=== PATIENT | female | born 1980 | race Caucasian/White ===

== ENCOUNTER 2019-08-27 06:07 | Day surgery (SDC) | payer OTHER ==
[~2019-08-27] VITALS: Ht 165.1 cm; Wt 94.8 kg
[2019-08-27] MEDS ORDERED: MIDAZOLAM 2 MG/2 ML VIAL ONE (08:08)
[2019-08-27] MEDS ORDERED: fentaNYL 0.05 MG/ML VIAL ONE (08:08)
[2019-08-27] MEDS ORDERED: MEPERIDINE 50 MG/ML SYR ONE (08:09)
[2019-08-27] MEDS ORDERED: ROCURONIUM 50 MG/5 ML VIAL IV ONE (08:10)
[2019-08-27] MEDS ORDERED: SUCCINYLCHOLINE CHLORIDE 200 MG/10 ML VIAL IVP ONE (08:10)
[2019-08-27] MEDS ORDERED: SEVOFLURANE 250 ML BTL INH ONE (08:10)
[2019-08-27] MEDS ORDERED: PROPOFOL 200 MG/20 ML VIAL IV ONE (08:10)
[2019-08-27] MEDS ORDERED: ONDANSETRON 4 MG/2 ML VIAL ONE (08:10)
[2019-08-27] MEDS ORDERED: DEXAMETHASONE 4 MG/ML VIAL ONE (08:10)
[2019-08-27] MEDS ORDERED: BUPIVACAINE-MPF/EPI 0.5% 30 ML VIAL INJ ONE (08:19)
[2019-08-27] MEDS ORDERED: LACTATED RINGERS 1,000 ML IV SCH (08:54)
[2019-08-27] MEDS ORDERED: MEPERIDINE 25 MG/ML SYR IVP PRN (08:55)
[2019-08-27] MEDS ORDERED: ONDANSETRON 4 MG/2 ML VIAL IVP PRN (08:55)
[2019-08-27] MEDS ORDERED: diphenhydrAMINE 50 MG/ML VIAL IVP PRN (08:55)
[2019-08-27] MEDS: HYDROmorphone 1 MG/ML AMP IVP PRN ×4 (09:45→10:15)
[2019-08-27] MEDS ORDERED: HYDROmorphone PFS 2 MG/ML SYR ONE (09:49)
[2019-08-27] MEDS ORDERED: MORPHINE SULFATE 2 MG/ML SYR IVP PRN (09:50)
[2019-08-27] MEDS ORDERED: HYDROmorphone 1 MG/ML AMP IVP PRN (09:50)
[2019-08-27] MEDS ORDERED: MORPHINE SULFATE 4 MG/ML SYR IV PRN (09:50)
[2019-08-27] MEDS ORDERED: ONDANSETRON 4 MG/2 ML VIAL IV PRN (09:50)
== END 2019-08-27 12:00 | disposition home or self-care (01) ==
LOC: MDS 06:07 → MMU 06:08 → MDS 12:00
PROVIDERS: ATTEND Surgery
DX: K80.10 Calculus of gallbladder with chronic cholecystitis without obstruction (principal); E66.9 Obesity, unspecified; Z68.35 Body mass index [BMI] 35.0-35.9, adult; Z79.899 Other long term (current) drug therapy
CPT/HCPCS: 47562; 82374; 88304; J0330; J0690; J1100; J1170; J2175; J2250; J2405; J2704; J3010; J3490; J7030; J7060; J7120